=== PATIENT | female | born 1950 | race Caucasian/White ===

== ENCOUNTER 2017-12-14 09:41 | Emergency (ER) | payer OTHER ==
[~2017-12-14] VITALS: Ht 162.6 cm; Wt 67.0 kg
[~2017-12-14 09:41] MED LIST: CIPR500T4 PO; FLAG500T PO; PERC5TAB12 PO
[2017-12-14 09:46] VITALS: BP 170/85; PULSE 55; RESP 16; TEMP 97.6; O2SAT 98
[2017-12-14] MEDS ORDERED: ACETAMINOPHEN/HYDROcodone 325 MG/5 MG TAB PO ONE ×2 (10:15→10:30)
[2017-12-14] MEDS ORDERED: ONDANSETRON ODT 4 MG TAB PO ONE (10:15)
--- NOTE | 2017-12-14 10:16 | PD ---
HPI Chief Complaint: Injury Time Seen by Provider: 09:58 Travel History International Travel<30 days: No Contact w/Intl Traveler<30days: No Traveled to known affect area: No History of Present Illness HPI 67-year-old female presents emergency department for evaluation of her left wrist after a FOOSH injury that occurred just prior to arrival. Patient states that her foot got caught in the tennis net this morning and she fell back landing on her left hand and wrist. Currently, states that her pain is moderate in severity, aching worse with movement. Patient states she has a difficult time rotating her forearm because of the pain. She denies neck, back , hip, leg pain. Says she took 3 ibuprofen just prior to arrival. She denies chronic medical issues and medication use. PFSH Past Medical History Diminished Hearing: No Menopausal: Yes Past Surgical History Joint Replacement: Yes (KNEE LIGAMENT REPLACEMENT) Tonsillectomy: Yes Social History Alcohol Use: No Tobacco Use: No Substance Use: No Allergies-Medications (Allergen,Severity, Reaction): Coded Allergies: No Known Allergies (Unverified Adverse Reaction, Unknown, 12/14/17) Reported Meds & Prescriptions Reported Meds & Active Scripts Active Percocet 5-325 mg (Oxycodone/Acetaminophen) Oxycodone 5/325 Acetaminophen Tab 1 Tab PO Q6H PRN Flagyl (Metronidazole) 500 Mg Tab 500 Mg PO BID 10 Days Cipro (Ciprofloxacin HCl) 500 Mg Tab 500 Mg PO BID 10 Days Review of Systems Except as stated in HPI: all other systems reviewed are Neg Physical Exam Narrative GENERAL: Well-nourished, well-developed patient. SKIN: Focused skin assessment warm/dry. HEAD: Normocephalic. EYES: No scleral icterus. No injection or drainage. NECK: Supple, trachea midline. No JVD or lymphadenopathy. CARDIOVASCULAR: Regular rate and rhythm without murmurs, gallops, or rubs. RESPIRATORY: Breath sounds equal bilaterally. No accessory muscle use. GASTROINTESTINAL: Abdomen soft, non-tender, nondistended. MUSCULOSKELETAL: No cyanosis, or edema. Left wrist-tender palpation of the entire wrist joint, no obvious deformities. Neurovascularly intact distally. Capillary refill brisk. Difficulty rotating forearm secondary to pain. BACK: Nontender without obvious deformity. No CVA tenderness. Data Data Last Documented VS Vital Signs Date Time Temp Pulse Resp B/P (MAP) Pulse Ox O2 Delivery O2 Flow Rate FiO2 12/14/17 12:27 76 16 145/72 (96) 99 12/14/17 09:46 97.6 Orders Orders Wrist, Complete ([id number]) (12/14/17 ) Acetamin-Hydrocod 325-5 Mg ([place] 5-325 (12/14/17 10:15) Ondansetron Odt (Zofran Odt) (12/14/17 10:15) Acetamin-Hydrocod 325-5 Mg ([place] 5-325 (12/14/17 10:30) Support Splint (12/14/17 11:24) Ct Wrist W/O Contrast (12/14/17 ) Ed Discharge Order (12/14/17 11:57) MDM Medical Decision Making Medical Screen Exam Complete: Yes Emergency Medical Condition: Yes Differential Diagnosis Left wrist contusion, left wrist fracture, left wrist sprain Narrative Course 67-year-old female presents emergency department for evaluation of left wrist pain after a FOOSH injury that occurred just prior to arrival. Patient does not take any medications. She ate crackers this morning as last oral intake. Patient administered Zofran for nausea prevention, hydrocodone for pain with good relief. Vital signs stable. This exam findings consistent with a fracture versus contusion. Last Impressions Wrist X-Ray 12/14/17 0000 Signed Impressions: Service Date/Time: December 10:25 - CONCLUSION: Plummer's fracture. Deacon Espino MD Upper Extremity CT 12/14/17 0000 Signed Impressions: Service Date/Time: December 11:38 - CONCLUSION: Comminuted Plummer's fracture. Deacon Espino MD I consulted my attending, Dr. Gaffney regarding this case. He called Dr. York, hand specialist for evaluation and possible treatment. Dr. York will see this patient in her office at 130p. Advised to show up to the office at 1p. Pt and knows the location of her office. Ordered wrist CT at request of Dr. York. Patient given instructions regarding follow-up by me, Dr. Gaffney, and the nurse. Diagnosis Primary Impression: Wrist fracture Qualified Codes: S62.102A - Fracture of unspecified carpal bone, left wrist, initial encounter for closed fracture Referrals: Orthopedist Patient Instructions: General Instructions, Wrist Fracture in Adults (DC) Additional Instructions: Follow-up in Dr. York's office today at 1 PM. Your appointment is at 1:30 PM. Keep the splint on until evaluated by Dr. York. Disposition: 01 DISCHARGE HOME Condition: Stable Samara Deluca Dec 14, 2017 10:16
--- NOTE | 2017-12-14 11:12 | RADRPT ---
EXAM DATE/TIME: 12/14/2017 10:25 [facility] COMPARISON: No previous studies available for comparison. INDICATIONS : Left posterior wrist pain post fall while playing tennis MEDICAL HISTORY : None. SURGICAL HISTORY : Tonsillectomy. Ligament repair in knee. ENCOUNTER: Initial ACUITY: 1 day PAIN SCORE: 10/10 LOCATION: Left posterior wrist FINDINGS: There is a transverse fracture through the distal metaphysis of the radius with mild comminution, mil d overriding and one half shaft width volar displacement of the distal fracture fragment. There may be a longitudinal fracture line extending into the radiocarpal joint. There is also a displaced frac ture of the ulnar styloid. The carpus is in normal alignment. No radiopaque foreign bodies. There is diffuse soft tissue swelling about the wrist. CONCLUSION: Plummer's fracture. Deacon Espino MD on December 14, 2017 at 11:08 Board Certified Radiologist. This report was verified electronically.
[2017-12-14 11:14] VITALS: RESP 18
--- NOTE | 2017-12-14 11:58 | RADRPT ---
EXAM DATE/TIME: 12/14/2017 11:38 [facility] COMPARISON: WRIST LEFT COMPLETE ([id number]), December 14, 2017, 10:25. INDICATIONS : Trauma. Trip and fall. Left wrist fracture. RADIATION DOSE: 13.08 CTDIvol (mGy) MEDICAL HISTORY : None SURGICAL HISTORY : None. ENCOUNTER: Initial ACUITY: 1 day PAIN SCALE: 10/10 LOCATION: Left wrist TECHNIQUE: Volumetric scanning of the wrist was performed. Using automated exposure control and adjustment of t he mA and/or kV according to patient size, radiation dose was kept as low as reasonably achievable to obtain optimal diagnostic quality images. DICOM format image data is available electronically for review and comparison. FINDINGS: There is a comminuted fracture of the distal radial metaphysis with a horizontal dominant fracture li ne, 2 fracture lines in the radial ulnar articulation, and a solitary longitudinal fracture line exte nding into the radiocarpal joint near the lunate. One fragment is displaced volarly and there is sep aration of the radial fracture is near the capitate and lunate. There is widening of the scapholunat e distance suggesting possible ligamentous injury. Is also a displaced fracture of the radial styloi d. CONCLUSION: Comminuted Plummer's fracture. Deacon Espino MD on December 14, 2017 at 11:53 Board Certified Radiologist. This report was verified electronically.
[2017-12-14 12:27] VITALS: BP 145/72
[2017-12-14] MEDS ORDERED: PERC5TAB12 PO (18:15)
== END 2017-12-14 12:28 | disposition home or self-care (01) ==
LOC: PHED 09:41 → PHEFT 12:28
DX: S62.102A Fracture of unspecified carpal bone, left wrist, initial encounter for closed fracture (principal); W01.0XXA Fall on same level from slipping, tripping and stumbling without subsequent striking against object, initial encounter; W23.1XXA Caught, crushed, jammed, or pinched between stationary objects, initial encounter; Y92.312 Tennis court as the place of occurrence of the external cause
CPT/HCPCS: 29125; 73110; 73200

== ENCOUNTER 2017-12-14 17:42 | Observation (INO) | payer OTHER ==
[~2017-12-14] VITALS: Ht 162.6 cm; Wt 71.2 kg
[2017-12-14 17:52] VITALS: BP 197/95; PULSE 73; RESP 18; TEMP 97.8; O2SAT 100
[2017-12-14] MEDS ORDERED: PERC5TAB12 PO (18:15)
--- NOTE | 2017-12-14 18:40 | RADRPT ---
EXAM DATE/TIME: 12/14/2017 18:14 [facility] COMPARISON: WRIST LEFT COMPLETE ([id number]), December 14, 2017, 10:25. INDICATIONS : Fall this morning playing tennis. Patient has already had x-ray this morning at [facility]. Report is onlin e.Increased pain and swelling. MEDICAL HISTORY : None. SURGICAL HISTORY : None. ENCOUNTER: Initial ACUITY: 1 day PAIN SCORE: 10/10 LOCATION: Left Wrist FINDINGS: Three view examination of the left wrist demonstrates mildly displaced fracture of the distal radius as well as ulnar styloid fracture. No dislocation. Overlying soft tissue swelling. CONCLUSION: 1. Fracture of distal radius with about half shaft width anterior displacement. Ulnar styloid fractur e. No change in alignment from exam performed earlier today. Harlan Clarke MD on December 14, 2017 at 18:36 Board Certified Radiologist. This report was verified electronically.
[2017-12-14] MEDS ORDERED: SODIUM CHLORIDE 0.9% FLUSH 10 ML FLUSH IVF PRN (20:00)
--- NOTE | 2017-12-14 20:03 | PD ---
HPI Chief Complaint: Musculoskeletal Complaint Time Seen by Provider: 17:57 Travel History International Travel<30 days: No Contact w/Intl Traveler<30days: No Traveled to known affect area: No History of Present Illness HPI 67-year-old female with a distal radius fracture arrives to the ED for the second time in about 12 hours. She describes severe pain with a burning quality as well as numbness in the hand. She followed up with Dr. York in the office and a splint was applied with a plan to operate next week. The patient' s pain increased and arrives here for evaluation. Patient ingested Lortab just an hour prior to ER arrival believes the pain might be improving marginally. No interval trauma/injury. PFSH Past Medical History Diminished Hearing: No Influenza Vaccination: No ?: Not Menopausal: Yes Past Surgical History Joint Replacement: Yes (KNEE LIGAMENT REPLACEMENT) Tonsillectomy: Yes Social History Alcohol Use: Yes (SOCIAL) Tobacco Use: No Substance Use: No Allergies-Medications (Allergen,Severity, Reaction): Coded Allergies: No Known Allergies (Unverified Adverse Reaction, Unknown, 12/14/17) Reported Meds & Prescriptions Reported Meds & Active Scripts Active Reported Percocet (Oxycodone-Acetaminophen) 5-325 mg Tab 1 Tab PO Q6H PRN Review of Systems Except as stated in HPI: all other systems reviewed are Neg Physical Exam Narrative GENERAL: 59-year-old female pleasant well-nourished well-developed moderate distress secondary to pain Vital Signs Date Time Temp Pulse Resp B/P (MAP) Pulse Ox O2 Delivery O2 Flow Rate FiO2 12/14/17 17:52 97.8 73 18 197/95 (129) 100 SKIN: Warm and dry. HEAD: Atraumatic. Normocephalic. EYES: Pupils equal and round. No scleral icterus. No injection or drainage. ENT: No nasal bleeding or discharge. Mucous membranes pink and moist. NECK: Trachea midline. No JVD. CARDIOVASCULAR: Regular rate and rhythm. RESPIRATORY: No accessory muscle use. Clear to auscultation. Breath sounds equal bilaterally. GASTROINTESTINAL: Abdomen soft, non-tender, nondistended. Hepatic and splenic margins not palpable. MUSCULOSKELETAL: There is a focal area of swelling at the DRUJ in the left side. Ecchymosis is present as well as appropriate tenderness. There is a 2+ radial artery pulse. There is active range of motion of the fingers flexion extension with abduction and abduction. The ulnar, median and radial nerve sensation is preserved bilaterally. The capillary refill is less than 2 seconds at the fingertips on both sides. NEUROLOGICAL: Awake and alert. No obvious cranial nerve deficits. Motor grossly within normal limits. Five out of 5 muscle strength in the arms and legs. Normal speech. PSYCHIATRIC: Appropriate mood and affect; insight and judgment normal. Data Data Last Documented VS Vital Signs Date Time Temp Pulse Resp B/P (MAP) Pulse Ox O2 Delivery O2 Flow Rate FiO2 12/14/17 17:52 97.8 73 18 197/95 (129) 100 Orders Orders Wrist, Complete ([id number]) (12/14/17 18:04) Complete Blood Count With Diff (12/14/17 19:46) Comprehensive Metabolic Panel (12/14/17 19:46) Prothrombin Time / Inr (Pt) (12/14/17 19:46) Act Partial Throm Time (Ptt) (12/14/17 19:46) Iv Access Insert/Monitor (12/14/17 19:46) Oximetry (12/14/17 19:46) Ecg Monitoring (12/14/17 19:46) Sodium Chloride 0.9% Flush (Ns Flush) (12/14/17 20:00) Consult Hand Surgery (12/14/17 ) Consent (12/14/17 19:50) Diet Regular Basic (12/15/17 Breakfast) Npo After Midnight W/ Po Meds (12/16/17 Breakfast) Elevate (12/14/17 19:52) Oxycodone-Acetamin 5-325 Mg (Percocet (12/14/17 20:15) Ondansetron Odt (Zofran Odt) (12/14/17 20:15) Electrocardiogram (12/14/17 ) Admit Order (Ed Use Only) (12/14/17 ) Vital Signs (Adult) Q4H (12/14/17 20:14) Diet Heart Healthy (12/15/17 Breakfast) Activity Oob With Assistance (12/14/17 20:14) Notify Dr: Other (12/14/17 20:14) Labs Laboratory Tests Test 12/14/17 20:00 [facility] Medical Decision Making Medical Screen Exam Complete: Yes Emergency Medical Condition: Yes Medical Record Reviewed: Yes Differential Diagnosis Nerve avulsion, compartment syndrome, neuropathy, migration of fragments Narrative Course Last Impressions Wrist X-Ray 12/14/17 1804 Signed Impressions: Service Date/Time: December 18:14 - CONCLUSION: 1. Fracture of distal radius with about half shaft width anterior displacement. Ulnar styloid fracture. No change in alignment from exam performed earlier today. Harlan Clarke MD Pain has gradually improved since the patient arrived. The case was discussed with hand surgeon Dr. York who is amenable with operative repair in the morning. At this time I do not believe the patient has compartment syndrome. Admission with plan for operative intervention will be arranged. d/w Emilie for [facility] service for Dr Vasquez. Diagnosis Primary Impression: Wrist fracture, left Qualified Codes: S62.102A - Fracture of unspecified carpal bone, left wrist, initial encounter for closed fracture Additional Impression: Paresthesia and pain of left extremity Admitting Information Admitting Physician Requests: Admit Satish Mcnamara MD Dec 14, 2017 20:03
[2017-12-14 20:12] LABS: AUTOMATED NEUTROPHIL # 11.4 TH/MM3 (1.8-7.7); BASOPHIL # 0.1 TH/MM3 (0-0.2); BASOPHIL % 1.1 % (0.0-2.0); EOSINOPHIL % 0.2 % (0.0-4.0); HEMATOCRIT 40.7 % (35.0-46.0); HEMOGLOBIN 13.6 GM/DL (11.6-15.3); LYMPH % 8.1 % (9.0-44.0); LYMPHOCYTE # 1.1 TH/MM3 (1.0-4.8); MEAN CORPUSCULAR HEMOGLOBIN 30.7 PG (27.0-34.0); MEAN CORPUSCULAR HGB CONC 33.4 % (32.0-36.0); MEAN PLATELET VOLUME 8.1 FL (7.0-11.0); MONOCYTE # 0.5 TH/MM3 (0-0.9); NEUT % 86.6 % (16.0-70.0); PLATELET COUNT 293 TH/MM3 (150-450); RED BLOOD COUNT 4.43 MIL/MM3 (4.00-5.30); RED CELL DISTRIBUTION WIDTH 13.6 % (11.6-17.2); WHITE BLOOD COUNT 13.1 TH/MM3 (4.0-11.0)
[2017-12-14 20:15] LABS: CHLORIDE 96 MEQ/L (98-107); SODIUM (NA) 130 MEQ/L (136-145)
[2017-12-14] MEDS ORDERED: BISACODYL 10 MG SUPP RECTAL PRN (20:15)
[2017-12-14] MEDS ORDERED: SENNOSIDES 8.6 MG TAB PO PRN (20:15)
[2017-12-14] MEDS ORDERED: NALOXONE HCL 0.4 MG/ML AMP IV PUSH PRN (20:15)
[2017-12-14] MEDS ORDERED: SODIUM CHLORIDE 0.9% FLUSH 10 ML FLUSH IV FLUSH PRN (20:15)
[2017-12-14] MEDS ORDERED: MAGNESIUM HYDROXIDE SUSP 30 ML CUP PO PRN (20:15)
[2017-12-14] MEDS ORDERED: ONDANSETRON ODT 4 MG TAB PO ONE (20:15)
[2017-12-14] MEDS ORDERED: oxyCODONE/ACETAMINOPHEN 5 MG/325 MG TAB PO ONE (20:15)
[2017-12-14] MEDS ORDERED: ACETAMINOPHEN 325 MG TAB PO PRN (20:15)
[2017-12-14 20:18] LABS: ALBUMIN 3.9 GM/DL (3.4-5.0); BICARBONATE 25.3 MEQ/L (21.0-32.0); CALCIUM 8.5 MG/DL (8.5-10.1)
[2017-12-14 20:19] LABS: BLOOD UREA NITROGEN 11 MG/DL (7-18); GLUCOSE,RANDOM 130 MG/DL (74-106)
[2017-12-14 20:22] LABS: ALT (GPT) 19 U/L (10-53); AST (GOT) 20 U/L (15-37); CREATININE 0.81 MG/DL (0.50-1.00); GLOMERULAR FILTRATION RATE 70 ML/MIN (>89)
[2017-12-14 20:23] LABS: TOTAL BILIRUBIN ADULT 0.9 MG/DL (0.2-1.0); TOTAL PROTEIN 7.2 GM/DL (6.4-8.2)
[2017-12-14 20:24] LABS: ALKALINE PHOSPHATASE 101 U/L (45-117)
[2017-12-14] MEDS: SODIUM CHLORIDE 0.9% FLUSH 10 ML FLUSH IV FLUSH SCH (21:00)
[2017-12-14 21:56] VITALS: BP 197/63; PULSE 87; RESP 18; O2SAT 96
[2017-12-14] MEDS: MORPHINE SULFATE 2 MG/ML SYRINGE IV PUSH PRN (22:35)
[2017-12-14 22:50] VITALS: BP 178/82; PULSE 67; RESP 20; TEMP 97; O2SAT 97
[2017-12-15] MEDS: ONDANSETRON HCL 4 MG/2 ML VIAL IVP PRN ×2 (02:37→11:25)
--- NOTE | 2017-12-15 03:39 | MB ---
cc: Kira York MD DATE: 12/15/2017 REASON FOR CONSULTATION: Worsening pain and swelling of left upper extremity. HISTORY OF PRESENT ILLNESS: Sindi Quintana is a 67-year-old female who fell early on the morning of 12/14/2017 while playing tennis onto her left wrist. She was seen at [facility] emergency room, diagnosed with a closed displaced distal radius fracture, and was seen in the office at approximately 1:00 on 12/14/2017, where she had no paresthesias. She reported moderate pain over the wrist. She was placed into a splint and instructed to elevate the hand over the weekend, call with any concerns, and was scheduled for surgery on Monday. The patient re-presented to the emergency room this evening with worsening pain and numbness. The patient did have improvement in the emergency room with pain medication and was admitted for possible surgical intervention on 12/15 or 12/16/2017. I was called by the nurse at approximately 1:00 this morning with significant worsening of the numbness and pain and presented to see the patient. The patient reports numbness in the carpal tunnel distribution. She reports the pain medication is not controlling her pain. The splint has been removed. PHYSICAL EXAMINATION: The patient is in distress. Compartments of the volar forearm are firm, but compressible. Function intact of FDS and FDP to all the fingers. Absent sensation in the median nerve distribution. Sensation intact in the ulnar and radial distributions. Less than 2 second capillary refill to the fingers. IMAGING: Repeat x-ray showed no additional displacement of the fracture. ASSESSMENT AND PLAN: A 67-year-old female with a closed displaced distal radius fracture with now acute carpal tunnel syndrome. Treatment options discussed with the patient. At this time, I recommend surgical intervention at the earliest available time for a carpal tunnel release, open reduction internal fixation of the distal radius fracture, possible VAC dressing, and she elected to proceed. Risks were explained, including but not limited to wound complications, infection, need for additional surgeries, possible skin graft, long-term paresthesias, nonunion, malunion, need for hardware removal, and she elects to proceed. Kira York MD [facility] , 03:11 AM , 03:39 AM HE
[2017-12-15] MEDS ORDERED: fentaNYL CITRATE 250 MCG/5 ML AMP ONE (04:01)
[2017-12-15] MEDS ORDERED: LIDOCAINE HCL 2% 50 ML VIAL ONE (04:08)
[2017-12-15] MEDS ORDERED: HYDROmorphone HCL PF 2 MG/ML VIAL IV PRN (04:15)
[2017-12-15] MEDS ORDERED: HYDROmorphone HCL PF 2 MG/ML VIAL IV ONE (04:15)
[2017-12-15] MEDS ORDERED: SODIUM CHLORIDE 0.9% INJ 100 ML ONE (04:36)
[2017-12-15] MEDS ORDERED: ceFAZolin INJ 1,000 MG VIAL ONE (04:36)
--- NOTE | 2017-12-15 05:31 | EKG ---
Date Performed: 12/14/2017 Time Performed: 20:25:17 PTAGE: 67 years EKG: Sinus rhythm NORMAL ECG NO PREVIOUS TRACING DOCTOR: Jean Pierre Lopez Interpretating Date/Time 12/15/2017 05:30:42
[2017-12-15] MEDS ORDERED: BACITRACIN OPHT OINT 3.5 GM TUBO ONE (07:33)
[2017-12-15] MEDS ORDERED: BACITRACIN TOP OINT 15 GM TUBE ONE (07:33)
[2017-12-15 08:00] VITALS: PULSE 80
[2017-12-15] MEDS ORDERED: *HYDROmorphone PF 1 MG VIAL PERIprocedural Use ONLY ONE ×2 (08:13→08:58)
[2017-12-15 09:00] VITALS: PULSE 72
[2017-12-15] MEDS: SODIUM CHLORIDE 0.9% FLUSH 10 ML FLUSH IV FLUSH SCH ×2 (09:00→20:17)
--- NOTE | 2017-12-15 09:28 | PD.ORT.PN ---
Subjective Subjective Remarks Patient seen in the PACU. Reports present but decreased sensation in the median nerve distribution. Objective Vitals Vital Signs Date Time Temp Pulse Resp B/P (MAP) Pulse Ox O2 Delivery O2 Flow Rate FiO2 12/15/17 09:15 70 14 126/56 (79) 96 Nasal Cannula 2 12/15/17 09:00 72 12/15/17 09:00 97.7 72 14 143/64 (90) 97 Nasal Cannula 2 12/15/17 08:45 72 14 146/64 (91) 97 Nasal Cannula 2 12/15/17 08:30 73 14 155/67 (96) 98 Nasal Cannula 2 12/15/17 08:15 73 14 163/60 (94) 98 Nasal Cannula 2 12/15/17 08:00 80 12/15/17 08:00 97.5 80 16 167/78 (107) 100 Nasal Cannula 2 12/14/17 23:02 12/14/17 22:50 97.0 67 20 178/82 (114) 97 12/14/17 21:56 87 18 197/63 (107) 96 Room Air 12/14/17 17:52 97.8 73 18 197/95 (129) 100 I/O 12/14/17 12/14/17 12/14/17 12/15/17 12/15/17 12/15/17 07:00 15:00 23:00 07:00 15:00 23:00 Intake Total 700 ml Output Total 30 ml Balance 670 ml Intake IV Total 700 ml Output Estimated Blood Loss 30 ml Result Diagram: 12/14/17199912/14/171999 Other Results Laboratory Tests Test 12/14/17 20:00 Prothromb Time International Ratio 1.0 RATIO Prothrombin Time 10.0 SEC (9.8-11.6) Imaging Last 24 hours Impressions Wrist X-Ray 12/14/17 1804 Signed Impressions: Service Date/Time: December 18:14 - CONCLUSION: 1. Fracture of distal radius with about half shaft width anterior displacement. Ulnar styloid fracture. No change in alignment from exam performed earlier today. Harlan Clarke MD Objective Remarks Splint in place, <2 sec capillary refill, able to flex/extend all fingers, sensation intact ulnar and radial distribution, decreased but present median nerve distribution Assessment & Plan Assessment and Plan 67yF POD0 s/p L carpal tunnel release and ORIF L distal radius for acute carpal tunnel syndrome -Admit for observation -Possible d/c tonight or tomorrow, will continue to follow. Patient reports improved sensation in the PACU. -Keep splint in place until 2 week followup, elevate left arm, NWB left arm Kira York MD Dec 15, 2017 09:28
[2017-12-15 10:10] LABS: AUTOMATED NEUTROPHIL # 14.6 TH/MM3 (1.8-7.7); BASOPHIL # 0.1 TH/MM3 (0-0.2); BASOPHIL % 0.9 % (0.0-2.0); EOSINOPHIL % 0.1 % (0.0-4.0); HEMATOCRIT 36.6 % (35.0-46.0); HEMOGLOBIN 12.6 GM/DL (11.6-15.3); LYMPH % 3.5 % (9.0-44.0); LYMPHOCYTE # 0.5 TH/MM3 (1.0-4.8); MEAN CELL VOLUME 91.6 FL (80.0-100.0); MEAN CORPUSCULAR HEMOGLOBIN 31.6 PG (27.0-34.0); MEAN CORPUSCULAR HGB CONC 34.5 % (32.0-36.0); MEAN PLATELET VOLUME 7.8 FL (7.0-11.0); MONO % 2.3 % (0.0-8.0); MONOCYTE # 0.4 TH/MM3 (0-0.9); NEUT % 93.2 % (16.0-70.0); PLATELET COUNT 268 TH/MM3 (150-450); RED CELL DISTRIBUTION WIDTH 13.4 % (11.6-17.2); WHITE BLOOD COUNT 15.6 TH/MM3 (4.0-11.0)
[2017-12-15 10:22] LABS: BICARBONATE 25.8 MEQ/L (21.0-32.0); CALCIUM 8.1 MG/DL (8.5-10.1)
[2017-12-15 10:27] LABS: CREATININE 0.65 MG/DL (0.50-1.00)
--- NOTE | 2017-12-15 10:43 | MP ---
cc: Kira York MD DATE OF OPERATION: 12/15/2017 DATE OF SERVICE: 12/15/2017. PREOPERATIVE DIAGNOSIS: 1. Acute left carpal tunnel syndrome 2. Closed displaced left distal radius fracture PROCEDURE: 1. Open reduction and internal fixation, left distal radius fracture. 2. Application of allograft bone graft, left wrist. 3. Left carpal tunnel release SURGEON:. Dr. Kira York ANESTHESIA: General. TOURNIQUET TIME: 117 minutes at 200 mmHg. IMPLANTS: 1. One Synthes distal radius plate. 2. DBX bone graft. INDICATIONS FOR PROCEDURE: Sindi Quintana is a 67-year-old right hand dominant female who was seen earlier in my office after sustaining a left distal radius fracture. The patient was initially scheduled for outpatient surgery. She left the office at approximately 2:30 p.m. She presented to [facility] emergency room in the evening with worsening pain and paresthesias. She noted some improvement in the emergency room and was admitted for observation. I was called at approximately 1 a.m. with report of dense paresthesias in the median nerve distribution on the left. After evaluating the patient, she did have dense paresthesias in the median nerve distribution. Compartments firm, but compressible. At this time, I recommended surgical intervention at the earliest available time emergently. The patient elected to proceed. Risks were explained, not limited to wound complications, infection, need for placement of VAC dressing, skin graft, persistent paresthesias, nonunion, malunion, need for hardware removal and she elected to proceed. DESCRIPTION OF PROCEDURE: The patient was identified in the preoperative holding area and the correct extremity was marked. The patient was taken to the operating room where anesthesia was induced. The left upper extremity was prepped and draped in normal sterile fashion. Attention was first turned to the carpal tunnel. Tourniquet was inflated to 200 mmHg for 170 minutes. A longitudinal incision was made in line with the radial border of the ring finger. The palmar fascia was identified and incised. The transverse carpal ligament was identified and incised. Upon incising the transcarpal ligament, there was a significant amount of blood under pressure, which was expressed from the carpal tunnel. Care was taken to protect the ulnar nerve, ulnar artery, palmar arch and to completely decompress the antebrachial fascia. Again, there was significant compression on the median nerve. Next, an incision was made over the volar forearm. Care was taken to protect the median nerve as well as the radial artery. Flexor carpi radialis approach was performed. Care was taken to protect the flexor pollicis longus tendon. The pronator quadratus was incised. The fracture was identified with significant destruction of the volar cortex. This was reduced under fluoroscopy and the decision was made to use approximately 1 mL of DBX bone graft. Then, K-wires and clamps were initially used and then a Synthes long standard plate was placed into position and confirmed under fluoroscopy. Initially two nonlocking screws and then multiple locking screws were placed and confirmed via fluoroscopy to hold the fracture in a reduced state. This had a stable configuration. The patient had good supination, pronation, flexion and extension of the wrist. The tourniquet was released. The patient had good color to the muscle with no evidence of compartment syndrome. The arm was soft. Decision was made to close both incisions using Monocryl and nylon over the forearm and nylon over the hand. The patient was placed into a sugar-tong splint. She was awoken from anesthesia without any complications. No local was used. In the recovery room, the patient already had improvement in the paresthesias. She will be admitted for observation. She will keep the splint in place until followup in approximately 2 weeks. MD PABLO Barger/DEJAN , 09:25 AM , 10:42 AM HE
[2017-12-15] MEDS: MORPHINE SULFATE 2 MG/ML SYRINGE IV PUSH PRN (11:28)
--- NOTE | 2017-12-15 11:34 | RADRPT ---
EXAM DATE/TIME: 12/14/2017 18:49 [facility] COMPARISON: WRIST LEFT COMPLETE ([id number]), December 14, 2017, 18:14. INDICATIONS : Post ORIF left wrist. MEDICAL HISTORY : None. SURGICAL HISTORY : Tonsillectomy. Ligament repair in knee. ENCOUNTER: Subsequent ACUITY: 2 days PAIN SCORE: Non-responsive. LOCATION: Left wrist FINDINGS: 3 magnified C-arm spot views are centered over the wrist and labeled left. These show an orthopedic p late with anchoring screws along the palmar cortex of the distal radius with good alignment of the di stal radial fracture. CONCLUSION: Limited images as detailed above. Deacon Crook Jr., MD on December 15, 2017 at 11:31 Board Certified Radiologist. This report was verified electronically.
[2017-12-15 12:00] VITALS: BP 166/79; PULSE 77; RESP 16; O2SAT 92
--- NOTE | 2017-12-15 12:44 | HHI.HP ---
[facility] Service [facility] Primary Care Physician Joanna Blair MD Admission Diagnosis Distal Left Radius Fracture Diagnoses: Travel History International Travel<30 Days: No Contact w/Intl Traveler <30 Da: No Traveled to Known Affected Are: No History of Present Illness This patient is a 67-year-old female with a recent left radial fracture. Patient did have increased pain after being seen urgently and scheduled for outpatient surgical evaluation. She had increased numbness and the patient was seen by the hand surgery team recommended for surgical release of the carpal tunnel as well as surgical treatment of the fracture. She is now status post ORIF discomfort postoperatively. Review of Systems Constitutional: DENIES: Diaphoretic episodes, Fatigue, Fever, Weight gain, Weight loss, Chills, Dizziness, Change in appetite, Night Sweats Endocrine: DENIES: Abnorml menstrual pattern, Heat/cold intolerance, Polydipsia , Polyuria, Polyphagia Eyes: DENIES: Blurred vision, Diplopia, Eye inflammation, Eye pain, Vision loss , Photosensitivity, Double Vision Ears, nose, mouth, throat: DENIES: Tinnitus, Hearing loss, Vertigo, Nasal discharge, Oral lesions, Throat pain, Hoarseness, Ear Pain, Running Nose, Epistaxis, Sinus Pain, Toothache, Odynophagia Respiratory: DENIES: Apneas, Cough, Snoring, Wheezing, Hemoptysis, Sputum production, Shortness of breath Cardiovascular: DENIES: Chest pain, Palpitations, Syncope, Dyspnea on Exertion , PND, Lower Extremity Edema, Orthopnea, Claudication Gastrointestinal: DENIES: Abdominal pain, Black stools, Bloody stools, Constipation, Diarrhea, Nausea, Vomiting, Difficulty Swallowing, Anorexia Genitourinary: DENIES: Abnormal vaginal bleeding, Dysmenorrhea, Dyspareunia, Sexual dysfunction, Urinary frequency, Urinary incontinence, Urgency, Hematuria , Dysuria, Nocturia, Vaginal discharge Musculoskeletal: COMPLAINS OF: Joint pain, Joint Swelling Integumentary: DENIES: Abnormal pigmentation, Pruritus, Rash, Nail changes, Breast masses, Breast skin changes, Nipple discharge Hematologic/lymphatic: DENIES: Bruising, Lymphadenopathy Immunologic/allergic: DENIES: Eczema, Urticaria Neurologic: DENIES: Abnormal gait, Headache, Localized weakness, Paresthesias, Seizures, Speech Problems, Tremor, Poor Balance Psychiatric: DENIES: Anxiety, Confusion, Mood changes, Depression, Hallucinations, Agitation, Suicidal Ideation, Homicidal Ideation, Delusions Except as stated in HPI: all other systems reviewed are Neg Past Family Social History Past Medical History Denies Past Surgical History Orthopedic Reported Medications Reviewed in the EMR Allergies: Coded Allergies: No Known Allergies (Unverified Allergy, Unknown, 12/14/17) Active Ordered Medications Reviewed in the EMR Family History Reviewed with patient Social History , no tobacco alcohol dependence Physical Exam Vital Signs Vital Signs Date Time Temp Pulse Resp B/P (MAP) Pulse Ox O2 Delivery O2 Flow Rate FiO2 12/15/17 09:30 72 14 115/54 (74) 97 Nasal Cannula 2 12/15/17 09:15 70 14 126/56 (79) 96 Nasal Cannula 2 12/15/17 09:00 72 12/15/17 09:00 97.7 72 14 143/64 (90) 97 Nasal Cannula 2 12/15/17 08:45 72 14 146/64 (91) 97 Nasal Cannula 2 12/15/17 08:30 73 14 155/67 (96) 98 Nasal Cannula 2 12/15/17 08:15 73 14 163/60 (94) 98 Nasal Cannula 2 12/15/17 08:00 80 12/15/17 08:00 97.5 80 16 167/78 (107) 100 Nasal Cannula 2 12/14/17 23:02 12/14/17 22:50 97.0 67 20 178/82 (114) 97 12/14/17 21:56 87 18 197/63 (107) 96 Room Air 12/14/17 17:52 97.8 73 18 197/95 (129) 100 Physical Exam GENERAL: This is a well-nourished, well-developed patient, in no apparent distress. SKIN: No rashes, ecchymoses or lesions. Cool and dry. HEAD: Atraumatic. Normocephalic. No temporal or scalp tenderness. EYES: Pupils equal round and reactive. Extraocular motions intact. No scleral icterus. No injection or drainage. ENT: Nose without bleeding, purulent drainage or septal hematoma. Throat without erythema, tonsillar hypertrophy or exudate. Uvula midline. Airway patent. NECK: Trachea midline. No JVD or lymphadenopathy. Supple, nontender, no meningeal signs. CARDIOVASCULAR: Regular rate and rhythm without murmurs, gallops, or rubs. RESPIRATORY: Clear to auscultation. Breath sounds equal bilaterally. No wheezes , rales, or rhonchi. GASTROINTESTINAL: Abdomen soft, non-tender, nondistended. No hepato-splenomegaly , or palpable masses. No guarding. MUSCULOSKELETAL: Splint in place postoperatively, other 3 extremities without clubbing, cyanosis, or edema. No joint tenderness, effusion, or edema noted. No calf tenderness. Negative Homans sign bilaterally. NEUROLOGICAL: Awake and alert. Cranial nerves II through XII intact. Motor and sensory grossly within normal limits. Five out of 5 muscle strength in all muscle groups. Normal speech. Laboratory Laboratory Tests Test 12/14/17 20:00 12/15/17 10:00 White Blood Count 13.1 15.6 Red Blood Count 4.43 4.00 Hemoglobin 13.6 12.6 Hematocrit 40.7 36.6 Mean Corpuscular Volume 92.0 91.6 Mean Corpuscular Hemoglobin 30.7 31.6 Mean Corpuscular Hemoglobin Concent 33.4 34.5 Red Cell Distribution Width 13.6 13.4 Platelet Count 293 268 Mean Platelet Volume 8.1 7.8 Neutrophils (%) (Auto) 86.6 93.2 Lymphocytes (%) (Auto) 8.1 3.5 Monocytes (%) (Auto) 4.0 2.3 Eosinophils (%) (Auto) 0.2 0.1 Basophils (%) (Auto) 1.1 0.9 Neutrophils # (Auto) 11.4 14.6 Lymphocytes # (Auto) 1.1 0.5 Monocytes # (Auto) 0.5 0.4 Eosinophils # (Auto) 0.0 0.0 Basophils # (Auto) 0.1 0.1 CBC Comment AUTO DIFF DIFF FINAL Differential Comment AUTO DIFF CONFIRMED Prothrombin Time 10.0 Prothromb Time International Ratio 1.0 Activated Partial Thromboplast Time 25.0 Blood Urea Nitrogen 11 7 Creatinine 0.81 0.65 Random Glucose 130 155 Total Protein 7.2 Albumin 3.9 Calcium Level 8.5 8.1 Alkaline Phosphatase 101 Aspartate Amino Transf (AST/SGOT) 20 Alanine Aminotransferase (ALT/SGPT) 19 Total Bilirubin 0.9 Sodium Level 130 130 Potassium Level 3.7 3.8 Chloride Level 96 96 Carbon Dioxide Level 25.3 25.8 Anion Gap 9 8 Estimat Glomerular Filtration Rate 70 91 Result Diagram: 12/15/17 1000 12/15/17 1000 Imaging Last Impressions Wrist X-Ray 12/15/17 0000 Signed Impressions: Service Date/Time: December 18:49 - CONCLUSION: Limited images as detailed above. Deacon Crook Jr., MD [place] VTE Risk Assessment Caprini VTE Risk Assessment: No/Low Risk (score <= 1) Caprini Risk Assessment Model Point Value = 1 Point Value = 2 Point Value = 3 Point Value = 5 Age 41-60 Minor surgery BMI > 25 kg/m2 Swollen legs Varicose veins or History of unexplained or recurrent spontaneous Oral contraceptives or hormone replacement Sepsis (< 1 month) Serious lung disease, including pneumonia (< 1 month) Abnormal pulmonary function Acute myocardial infarction Congestive heart failure (< 1 month) History of inflammatory bowel disease Medical patient at bed rest Age 61-74 Arthroscopic surgery Major open surgery (> 45 min) Laparoscopic surgery (> 45 min) Malignancy Confined to bed (> 72 hours) Immobilizing plaster cast Central venous access Age >= 75 History of VTE Family history of VTE Factor V Leiden Prothrombin [id number] Lupus anticoagulant Anticardiolipin antibodies Elevated serum homocysteine Heparin-induced thrombocytopenia Other congenital or acquired thrombophilia Stroke (< 1 month) Elective arthroplasty Hip, pelvis, or leg fracture Acute spinal cord injury (< 1 month) Prophylaxis Regimen Total Risk Factor Score Risk Level Prophylaxis Regimen 0-1 Low Early ambulation 2 Moderate Order ONE of the following: *Sequential Compression Device (SCD) *Heparin 5000 units SQ BID 3-4 Higher Order ONE of the following medications: *Heparin 5000 units SQ TID *Enoxaparin/Lovenox 40 mg SQ daily (WT < 150 kg, CrCl > 30 mL/min) *Enoxaparin/Lovenox 30 mg SQ daily (WT < 150 kg, CrCl > 10-29 mL/min) *Enoxaparin/Lovenox 30 mg SQ BID (WT < 150 kg, CrCl > 30 mL/min) AND/OR *Sequential Compression Device (SCD) 5 or more Highest Order ONE of the following medications: *Heparin 5000 units SQ TID (Preferred with Epidurals) *Enoxaparin/Lovenox 40 mg SQ daily (WT < 150 kg, CrCl > 30 mL/min) *Enoxaparin/Lovenox 30 mg SQ daily (WT < 150 kg, CrCl > 10-29 mL/min) *Enoxaparin/Lovenox 30 mg SQ BID (WT < 150 kg, CrCl > 30 mL/min) AND *Sequential Compression Device (SCD) Assessment and Plan Problem List: (1) Wrist fracture, left ICD Code: S62.102A - Fracture of unspecified carpal bone, left wrist, initial encounter for closed fracture Status: Acute Plan: Continue to follow-up with hand surgery status post ORIF left distal radial fracture Pain management as needed IV narcotics (2) Paresthesia and pain of left extremity ICD Code: M79.609 - Pain in unspecified limb; R20.2 - Paresthesia of skin Status: Acute Plan: Postop day 0 status post decompression of carpal tunnel Continue with splint Continue observation Code Status Full code Discussed Condition With Likely discharge in a.m. Problem Qualifiers (1) Wrist fracture, left: Qualified Codes: S62.102A - Fracture of unspecified carpal bone, left wrist, initial encounter for closed fracture Michelle Mcguire MD Dec 15, 2017 12:44
[2017-12-15 16:00] VITALS: BP 154/74; PULSE 73; RESP 16; TEMP 96.2; O2SAT 99
[2017-12-15 20:41] VITALS: BP 146/69; PULSE 74; RESP 16; TEMP 96.2; O2SAT 97
[2017-12-16 00:38] VITALS: BP 135/64; PULSE 72; RESP 18; TEMP 96.9; O2SAT 98
[2017-12-16 08:00] VITALS: BP 180/81; PULSE 70; RESP 18; TEMP 98.6; O2SAT 96
[2017-12-16] MEDS: SODIUM CHLORIDE 0.9% FLUSH 10 ML FLUSH IV FLUSH SCH (08:58)
--- NOTE | 2017-12-16 11:25 | HHI.PR ---
Subjective Remarks Patient seen and evaluated today postoperative day 1 status post ORIF and carpal tunnel release of left upper extremity after radial fracture. Doing well. Pain controlled. Diet tolerated. Discharge plan discussed with patient , spouse and nursing team Objective Vitals Vital Signs Date Time Temp Pulse Resp B/P (MAP) Pulse Ox O2 Delivery O2 Flow Rate FiO2 12/16/17 08:00 98.6 70 18 180/81 (114) 96 12/16/17 04:14 12/16/17 00:38 96.9 72 18 135/64 (87) 98 12/15/17 20:41 96.2 74 16 146/69 (94) 97 12/15/17 16:00 96.2 73 16 154/74 (100) 99 12/15/17 12:00 77 16 166/79 (108) 92 I/O 12/15/17 12/15/17 12/15/17 12/16/17 12/16/17 12/16/17 07:00 15:00 23:00 07:00 15:00 23:00 Intake Total 1100 ml 440 ml Output Total 30 ml Balance 1070 ml 440 ml Intake Oral 0 ml 440 ml IV Total 1100 ml Output Estimated Blood Loss 30 ml # Voids 0 5 2 # Bowel Movements 0 Result Diagram: 12/15/17 1000 12/15/17 1000 Objective Remarks GENERAL: This is a well-nourished, well-developed patient, in no apparent distress. CARDIOVASCULAR: Regular rate and rhythm without murmurs, gallops, or rubs. RESPIRATORY: Clear to auscultation. Breath sounds equal bilaterally. No wheezes , rales, or rhonchi. GASTROINTESTINAL: Abdomen soft, non-tender, nondistended. Normal active bowel sounds MUSCULOSKELETAL: Left upper extremity splinted, other 3 extremities without clubbing, cyanosis, or edema. NEURO: Alert & Oriented x4 to person, place, time, situation. Moves all ext x4 Procedures Left upper extremity ORIF and carpal tunnel release A/P Problem List: (1) Wrist fracture, left ICD Code: S62.102A - Fracture of unspecified carpal bone, left wrist, initial encounter for closed fracture Status: Acute Plan: Continue to follow-up with hand surgery status post ORIF left distal radial fracture Pain management as needed IV narcotics (2) Paresthesia and pain of left extremity ICD Code: M79.609 - Pain in unspecified limb; R20.2 - Paresthesia of skin Status: Acute Plan: Postop day 0 status post decompression of carpal tunnel Continue with splint Continue observation Discharge Planning Discharge home with outpatient follow-up Case discussed with hand surgery Diet regular Activity nonweightbearing upper extremity Problem Qualifiers (1) Wrist fracture, left: Qualified Codes: S62.102A - Fracture of unspecified carpal bone, left wrist, initial encounter for closed fracture Michelle Mcguire MD Dec 16, 2017 11:25
--- NOTE | 2017-12-16 11:25 | HHI.DCPOC ---
Discharge Care Plan Diagnosis: (1) Wrist fracture, left Goals to Promote Your Health * To prevent worsening of your condition and complications * To maintain your health at the optimal level Directions to Meet Your Goals Take your medications as prescribed Follow your dietary instruction Follow activity as directed Keep your appointments as scheduled Take your immunizations and boosters as scheduled If your symptoms worsen call your PCP, if no PCP go to Urgent Care Center or Emergency Room Smoking is Dangerous to Your Health. Avoid second hand smoke Call the 24-hour hour crisis hotline for domestic abuse at Michelle Mcguire MD Dec 16, 2017 11:25
--- NOTE | 2017-12-16 12:15 | PD.ORT.PN ---
Subjective Subjective Remarks Patient reports pain controlled. Reports almost normal sensation in median nerve distribution with mild numbness. Has been elevating arm on pillows. Patient requesting to go home. Objective Vitals Vital Signs Date Time Temp Pulse Resp B/P (MAP) Pulse Ox O2 Delivery O2 Flow Rate FiO2 12/16/17 08:00 98.6 70 18 180/81 (114) 96 12/16/17 04:14 12/16/17 00:38 96.9 72 18 135/64 (87) 98 12/15/17 20:41 96.2 74 16 146/69 (94) 97 12/15/17 16:00 96.2 73 16 154/74 (100) 99 I/O 12/15/17 12/15/17 12/15/17 12/16/17 12/16/17 12/16/17 07:00 15:00 23:00 07:00 15:00 23:00 Intake Total 1100 ml 440 ml Output Total 30 ml Balance 1070 ml 440 ml Intake Oral 0 ml 440 ml IV Total 1100 ml Output Estimated Blood Loss 30 ml # Voids 0 5 2 # Bowel Movements 0 Result Diagram: 12/15/17 1000 12/15/17 1000 Imaging Last 24 hours Impressions Wrist X-Ray 12/14/17 1804 Signed Impressions: Service Date/Time: December 18:14 - CONCLUSION: 1. Fracture of distal radius with about half shaft width anterior displacement. Ulnar styloid fracture. No change in alignment from exam performed earlier today. Harlan Clarke MD Objective Remarks [place] Splint in place, <2 sec capillary refill, able to flex/extend all fingers, moderate swelling to fingers, sensation intact ulnar and radial distribution, decreased but present median nerve distribution Assessment & Plan Assessment and Plan 67yF POD1 s/p L carpal tunnel release and ORIF L distal radius for acute carpal tunnel syndrome -Okay to discharge per hand surgery -Patient educated on postoperative course and instructed to elevate arm higher and work on gentle range of motion fingers, nonweightbearing left arm -Keep splint in place until 2 week followup, call immediately with any concerns Kira York MD Dec 16, 2017 12:15
[2017-12-16 12:36] VITALS: BP 166/89
== END 2017-12-16 13:46 | disposition home or self-care (01) ==
LOC: PHEFT 17:42 → PHEDA 20:15 → PH3B 22:50
PROVIDERS: ADMIT Hospitalist; ATTEND Hospitalist
DX: S52.502A Unspecified fracture of the lower end of left radius, initial encounter for closed fracture (principal); G56.02 Carpal tunnel syndrome, left upper limb; G89.18 Other acute postprocedural pain; W19.XXXA Unspecified fall, initial encounter; Y93.73 Activity, racquet and hand sports; Y92.39 Other specified sports and athletic area as the place of occurrence of the external cause; Y99.8 Other external cause status
CPT/HCPCS: 01830; 25607; 64721; 73110; 76000; 80048; 80053; 85025; 85610; 85730; 93005; 96374; 96375; 96376; 99285; C1713; G0378; J0690; J1170; J2270; J2405; J3010